=== PATIENT | male | born 1955 | race Caucasian/White ===

== ENCOUNTER → 2021-10-05 14:13 | Outpatient (CLI) | payer MEDICARE, OTHER, SELFPAY ==
[2021-10-05 20:03] LABS: COVID19 -Nasal RAPID POSITIVE (Negative)
== END ==
PROVIDERS: Visit Provider Family Medicine Sleep Medicine
DX: U07.1 COVID-19 (principal); Z20.822 Contact with and (suspected) exposure to COVID-19
CPT/HCPCS: 87635; C9803

== ENCOUNTER → 2021-12-10 14:03 | Outpatient (CLI) | payer MEDICARE, OTHER, SELFPAY ==
[2021-12-10 15:38] LABS: COVID19 -Nasal RAPID Negative (Negative)
== END ==
PROVIDERS: Visit Provider Surgery
DX: Z01.812 Encounter for preprocedural laboratory examination (principal); Z20.822 Contact with and (suspected) exposure to COVID-19
CPT/HCPCS: 87635; C9803

== ENCOUNTER 2021-12-12 12:56 | Day surgery (SDC) | payer MEDICARE, OTHER, SELFPAY ==
--- NOTE | 2021-12-12 | PATH_ITS ---
[facility] Accession Number: [id number] . 01 Material submitted: . ileo-cecal valve - MASS AT IC VALVE . 01 Diagnosis: Ileocecal Valve, Mass, Biopsy: Tubulovillous adenoma. No evidence of malignancy or high-grade dysplasia. MRV 12/14/2021 1041 Local . 01 Electronically signed: . Kita Russo MD, Pathologist NPI- [id number] . 01 Gross description: . MASS AT IC VALVE: Received in formalin are multiple fragment(s) of delgadillo, soft tissue measuring 1.0 x 0.4 x 0.1 cm in aggregate submitted entirely in 1 cassette(s) /CPE 12/13/2021 0733 Local . 01 Pathologist provided ICD-10: D12.0 . 01 CPT . 994855 Specimen Comment: A courtesy copy of this report has been sent to [phone] Performed at: 01 [facility] [address] [place] [address] [facility], [place], [place] [id number] MD Hudson Vasquez MD Phone: [phone]
[2021-12-12 13:17] VITALS: BP 174/96; PULSE 69; RESP 15; TEMP 36.8; O2SAT 98; BMI 22.9
--- NOTE | 2021-12-12 14:05 | PM.HP.1 ---
History of Present Illness History of Present Illness Chief complaint: Colonoscopy Patient History Family & Social History Social History: household members spouse Tobacco & Substance use: Smoking Status Never smoker alcohol intake current alcohol intake frequency holiday/special occasion Substance Use Type does not use Meds Home Medications and Allergies Home Medications Medication Instructions Recorded Confirmed Type amlodipine 5 mg tablet tab 12/12/21 History atorvastatin 80 mg tablet tab 12/12/21 History insulin glargine 100 unit/mL (3 ea SUBCUT 12/12/21 History mL) subcutaneous pen (Lantus Solostar U-100 Insulin) metformin 500 mg tablet,extended tab PO 12/12/21 History release 24 hr Allergies Allergy/AdvReac Type Severity Reaction Status Date / Time No Known Drug Allergies Allergy Verified 12/12/21 13:23 Review of Systems Review of Systems Narrative: Negative Exam Vital Signs (past 8 hours): - 12/12/21 13:17 Temperature 98.2 F Pulse Rate 69 Respiratory Rate 15 Blood Pressure 174/96 H Pulse Oximetry 98 Oxygen Delivery Method Room Air Oxygen Delivery Method Room Air Narrative Exam Narrative: Awake alert and oriented x3, pupils equal round reactive to light, oropharynx clear, heart regular rate and rhythm, lungs clear to auscultation bilaterally, abdomen nontender and nondistended, extremities without edema, no gross neurologic deficits noted Assessment & Plan Assessment & Plan narrative: Colon cancer screening for colonoscopy Time Spent With Patient Critical Care time: I spent a total of [] minutes of critical care time on this patient's care today; this time is exclusive of procedural time.
--- NOTE | 2021-12-12 14:33 | P.OP.COLON_ITS ---
Operative Date/Time/Diagnoses Date of procedure: 12/12/21 Procedure & Clinicians Study performed: Colonoscopy with cold biopsy and injection of tattooing ink. Indications: Colon cancer screening. Last colonoscopy 2008, ? History of colon polyps Procedure Notes Procedure in detail: Prior to the procedure, history and physical was performed, and patient medicati ons and allergies were reviewed. Preprocedure nursing history and assessment was reviewed. Patient identification and proposed procedure were verified by the physician and nurse in the procedure room. The physical status of the patient was reassessed after the procedure. After informed consent was obtained including risks, benefits, and alternatives, the scope was passed under direct vision. Throughout the procedure, the patient's blood pressure, pulse, and oxygen saturations were monitored continuously. The colonoscope was introduced through the anus and advanced to the cecum as identified by the appendiceal orifice and ileocecal valve. The patient tolerated the procedure well. Bowel prep was deemed adequate to detect polyps greater than 5 mm. Perianal and digital rectal examinations were unremarkable. Retroflexion in the rectum revealed grade 1 hemorrhoids. A soft, villiform mass was found overlying the IC valve in the ascending colon. The mass extended proximally into the cecum. The mass occupied 50% of the circumference of the lumen of the colon. Mass was nonobstructing. The mass measured approximately 5 x 4 cm. Biopsies of the mass were taken. The area just distal to the mass was tattooed. The remainder of the colon was unremarkable Complications: other (EBL minimal. No complications) Impression: Internal hemorrhoids Nonobstructing 5 cm diameter ascending colon mass overlying the IC valve and involving the cecum. Biopsied. Area just distal to the mass tattooed Post-procedure Plan for aftercare: Obtain CT of the abdomen and pelvis with IV contrast Refer to general surgery Follow-up pathology results Repeat colonoscopy in 1 year after surgical removal of colon mass Resume home medications Resume previous diet Patient has a contact number available for emergencies. The signs and symptoms of potential delayed complications were discussed with the patient. Return to normal activities tomorrow. Written discharge instructions were provided to the patient. Discharge home with escort
[2021-12-12 14:34] VITALS: BP 118/68; PULSE 70; RESP 15; TEMP 36.6; O2SAT 97
[2021-12-12 14:39] VITALS: BP 145/72; PULSE 69; RESP 15; O2SAT 98
[2021-12-12 14:55] VITALS: BP 158/78; PULSE 69; RESP 18; TEMP 36.2; O2SAT 99
[2021-12-12 15:30] VITALS: BP 151/75; PULSE 66; RESP 15; TEMP 36.3; O2SAT 98
== END 2021-12-12 15:30 | disposition home or self-care (01) ==
PROVIDERS: Internal Medicine; Referring Provider Internal Medicine Gastroenterology; Visit Provider Internal Medicine Gastroenterology
PROC: 0DJD8ZZ Inspection of Lower Intestinal Tract, Via Natural or Artificial Opening Endoscopic (ICD-10-PCS; CPT 45378; principal; 2021-12-12 14:00)
DX: D12.0 Benign neoplasm of cecum (principal); K64.0 First degree hemorrhoids; R10.33 Periumbilical pain; E11.9 Type 2 diabetes mellitus without complications; Z86.010 Personal history of colon polyps; Z79.4 Long term (current) use of insulin; Z79.84 Long term (current) use of oral hypoglycemic drugs; Z79.899 Other long term (current) drug therapy
CPT/HCPCS: 45380; 45381; 82962; J2704

== ENCOUNTER → 2021-12-31 17:14 | Outpatient (CLI) | payer MEDICARE, OTHER, SELFPAY ==
[2021-12-31 17:55] LABS: Add Manual Diff / Slide Review NO; Basophils Absolute Auto 0 /uL (0-100); Basophils Percent Auto 0.4 % (0-2); Eosinophils Absolute Auto 100 /uL (0-450); Eosinophils Percent Auto 1.4 % (2-4); Hematocrit 37.4 % (41-53); Hemoglobin 12.5 g/dL (13.5-17.5); Lymphocytes Absolute Auto 1700 /uL (1100-4500); Lymphocytes Percent Auto 23.2 % (25-40); Mean Corpuscular HGB Conc 33.4 % (30-36); Mean Corpuscular Hemoglobin 28.8 PG (26-34); Mean Corpuscular Volume 86.3 fL (80-100); Monocytes Absolute Auto 600 /uL (0-900); Neutrophils Absolute Auto 4900 /uL (1500-7000); Platelet Count 239 X10^3/uL (150-400); Red Blood Cell Count 4.33 X10^6/uL (4.5-5.9); Red Cell Distribution Width 13.5 % (11.6-14.8); White Blood Cell Count 7.3 X10^3/uL (4.5-11.0)
[2021-12-31 18:09] LABS: Alanine Aminotransferase 35 IU/L (<50); Albumin 4.7 g/dL (3.5-5.0); Albumin Globulin Ratio 1.6 (1.0-2.8); Alkaline Phosphatase 129 U/L (38-126); Aspartate Aminotransferase 29 IU/L (17-59); BUN Creatinine Ratio 26.5 (6-22); Bilirubin Total 0.4 mg/dL (0.2-1.3); Blood Urea Nitrogen 27 mg/dL (9-20); Calcium 10.2 mg/dL (8.4-10.2); Carbon Dioxide 27 mmol/L (22-32); Chloride 103 mmol/L (98-107); Estimated Glomerular Filt Rate > 60 mL/min (>60); Globulin 2.9 g/dL (1.7-4.1); Glucose 177 mg/dL (80-110); HEMOLYSIS < 15 (0-50); Potassium 5.1 mmol/L (3.4-5.1); Sodium 140 mmol/L (137-145); Total Protein 7.6 g/dL (6.3-8.2)
== END ==
PROVIDERS: Referring Provider Surgery; Visit Provider Surgery
DX: K63.89 Other specified diseases of intestine (principal)
CPT/HCPCS: 36415; 80053; 82378; 85025; 99214

== ENCOUNTER → 2022-01-08 10:57 | Outpatient (CLI) | payer MEDICARE, OTHER, SELFPAY ==
--- NOTE | 2022-01-08 10:59 | DI.CT.S_ITS ---
PROCEDURE: CT CHEST ABD PEL W CON INDICATIONS: Cecal mass TECHNIQUE: After the administration of oral and intravenous contrast, axial sections acquired from the supraclavicular neck to the pubic symphysis. Coronal and sagittal reformats were performed. For radiation dose reduction, the following was used: automated exposure control, adjustment of mA and/or kV according to patient size. COMPARISON: None. FINDINGS: Image quality: Excellent. CHEST: Lower Neck: No enlarged lymph nodes. Thyroid: Unremarkable Axillae: No enlarged lymph nodes. Chest Wall: Unremarkable. Lungs and Airways: No consolidation or suspicious nodules. Pleura: No pneumothorax or pleural effusions. Heart: Heart size is normal. No pericardial effusion. Thoracic Vessels: The aorta and pulmonary arteries demonstrate normal size. Mediastinum and Stefany: No enlarged lymph nodes. Esophagus: No wall thickening. No hiatal hernia. ABDOMEN: Liver: Unremarkable. Gallbladder: Contracted. Biliary ducts: Unremarkable. Pancreas: Unremarkable. Spleen: Unremarkable. Adrenal Glands: Unremarkable. Kidneys and Ureters: Unremarkable. Low-density right cortical and low-density left pararenal cysts are noted. Stomach and Bowel: The stomach and small bowel demonstrate normal caliber and wall thickness. A filling defect is visualized within the cecum which likely corresponds with the reported cecal mass. There is no extension beyond the wall of the bowel. The colon demonstrates normal caliber and wall thickness throughout. Peritoneum: No abnormal intraperitoneal fluid. No free air. No peritoneal implants. Ventral Wall: No hernia. Abdominal Nodes: No retroperitoneal or mesenteric adenopathy by size criteria. Vessels: Aorta and inferior vena cava are normal in size. PELVIS: Pelvic Organs: Unremarkable. Bladder: Unremarkable. Pelvic Nodes: No enlarged lymph nodes. Miscellaneous: There are small bilateral fat containing inguinal hernias. Bones: Unremarkable. IMPRESSION: 1. Irregularly marginated cecal mass. No findings to suggest extension beyond the bowel wall or metastasis. No mesenteric adenopathy. Dictated by: Kristy Fan M.D. on 01/08/2022 at 15:58 Approved by: Kristy Fan M.D. on 01/08/2022 at 16:04
== END ==
PROVIDERS: Referring Provider Surgery; Visit Provider Surgery
DX: K63.89 Other specified diseases of intestine (principal)
CPT/HCPCS: 71260; 74177; Q9967

== ENCOUNTER → 2022-01-24 11:09 | Outpatient (CLI) | payer MEDICARE, OTHER, SELFPAY ==
[2022-01-24 11:35] LABS: COVID19 -Nasal RAPID POSITIVE (Negative)
== END ==
PROVIDERS: Visit Provider Surgery
DX: U07.1 COVID-19 (principal); Z01.812 Encounter for preprocedural laboratory examination
CPT/HCPCS: 87635; C9803

== ENCOUNTER → 2022-01-31 11:45 | Outpatient (CLI) | payer MEDICARE, OTHER, SELFPAY ==
[2022-01-31 12:26] LABS: COVID19 -Nasal RAPID POSITIVE (Negative)
== END ==
PROVIDERS: Visit Provider Surgery
DX: U07.1 COVID-19 (principal)
CPT/HCPCS: 87635; C9803

== ENCOUNTER → 2022-02-11 11:38 | Outpatient (CLI) | payer MEDICARE, OTHER, SELFPAY ==
[2022-02-11 12:41] LABS: COVID19 -Nasal RAPID Negative (Negative)
== END ==
PROVIDERS: Visit Provider Surgery
DX: Z20.822 Contact with and (suspected) exposure to COVID-19 (principal); Z01.812 Encounter for preprocedural laboratory examination
CPT/HCPCS: 87635; C9803

== ENCOUNTER 2022-02-12 06:32 | Inpatient (IN) | payer MEDICARE, OTHER, SELFPAY ==
[2022-02-11 07:54] VITALS: BMI 22.2
[2022-02-12] VITALS (14 sets, daily range): BP systolic 130–165; BP diastolic 62–84; PULSE 70–82; RESP 14–19; TEMP 35.7–36.9; O2SAT 93–99; BMI 22.2
--- NOTE | 2022-02-12 | PATH_ITS ---
[facility] Accession Number: [id number] . 01 Material submitted: . small bowel - RIGHT COLON AND TERMINAL ILEUM . 01 Clinical history: . LAP-ASSISTED RIGHT HEMICOLLECTOMY . 01 Diagnosis: Right Colon and Terminal Ileum, Laparoscopic-Assisted Right Hemicolectomy: Invasive, moderately differentiated, colonic adenocarcinoma. Tumor site: Ileocecal valve. Tumor size: 0.9 cm in maximal linear dimension (as measured on glass slide). Tumor extent: Invades muscularis propria. Macroscopic tumor perforation: Not identified. Lymphovascular invasion: Not identified. Perineural invasion: Identified. Invasive adenocarcinoma arises in a 8.2 x 4.3 cm tubulovillous adenoma with focal high-grade dysplasia. Treatment effect: No known presurgical therapy. Margins: All margins are widely negative for invasive carcinoma. Lymph nodes: All lymph nodes are negative for metastatic carcinoma (0/14 lymph nodes examined). Tumor deposits: Not identified. Distant metastasis: Not applicable. Pathologic stage: pT2 pN0. Immunostaining for markers of microsatellite instability (MSI) (controls stain appropriately). MLH1: Loss of nuclear expression. MSH2: No loss of nuclear expression. MSH6: No loss of nuclear expression. PMS2: Loss of nuclear expression. [facility] 02/20/2022 1517 Local . 01 Comment: Immunohistochemical staining for markers of microsatellite instability (MSI) are performed. The analysis shows no loss of MLH1, MSH2, MSH6, or PMS2, demonstrating no immunophenotypic evidence of underlying DNA mismatch repair gene mutation. If clinical concern warrants, additional testing by PCR for MSI could be considered for further evaluation. . 01 Electronically signed: . Miranda Ndiaye MD, Pathologist NPI- [id number] . 01 Gross description: . Received in formalin labeled with the patient's name and right colon and terminal ileum consists of an ileocectomy with a fragment of ileum measuring 2.9 cm in length and 2.2 cm in diameter attached to a segment of colon measuring 23.7 cm in length and 4.7 cm in average diameter. No appendix is identified. The serosa is pink to delgadillo and grossly intact with a hemorrhagic area measuring 6.5 cm in greatest dimension located on the colon approximately 12 cm from the distal margin. A moderate amount of mesenteric fat is attached measuring out to 6.6 cm. The proximal margin is inked blue, the distal margin is inked black, and the radial margin is inked green. Opening the specimen reveals a large sessile polypoid mass adjacent to and partially involving the ileocecal valve and measuring 8.2 x 4.3 cm. The lesion measures approximately 5.0 cm from the proximal margin and greater than 5 cm from the distal margin. Sectioning reveals the lesion does not grossly extend beyond the mucosa. The remaining mucosa is pink-delgadillo and velvety with normal appearing folds and no additional polyps or lesions are identified. The rice average 0.4 cm thick. Palpation of the mesenteric fat reveals five delgadillo lymph node candidates ranging from 0.4 to 0.9 cm in greatest dimension. [employer]ant sections are submitted as follows: . A1: Ileal margin en face. A2-A3: Distal margin en face. A4: Radial margin en face. A5-A10: Polypoid mass. A11: Ileocecal valve. A12: Talent Consultant normal colon. A13: Single lymph node candidate bisected. A14: Single lymph node candidate intact. A15: Three intact lymph node candidates. ([id number]) . The mass measures 6.5 cm from the nearest radial margin. Palpation reveals 11 additional lymph node candidates ranging from 0.3 to 1.7 cm in greatest dimension. . Additional sections are submitted as follows: A16: Three intact lymph node candidates. A17: Four intact lymph node candidates. A18: Three intact lymph node candidates. A19: Single intact lymph node candidate. A20-A38: Remaining mass. ([id number]) /MRV 02/14/2022 1353 Local . 01 Pathologist provided ICD-10: C18.0, K63.5 . 01 CPT . 137939, S85373, X29343 Specimen Comment: A courtesy copy of this report has been sent to [phone] Performed at: 01 [facility] [address] [facility], [place], [place] [id number] MD Hudson Vasquez MD Phone: [phone]
[2022-02-12] MEDS: LACTATED RINGERS 1,000 ML 42 ML IV ×2 (07:11→10:06)
--- NOTE | 2022-02-12 07:46 | SUR.PREOP ---
02/12/2212-8533-Qnwwrnolgp now here to see patient. aware of bs and home BS prior to ensure. 02/12/2216-9032-Hyyzaoa late-just arrived. no h&P/ No preop orders.
--- NOTE | 2022-02-12 07:47 | PM.HP.1 ---
History of Present Illness History of Present Illness Date Patient Seen: 02/12/22 Time Patient Seen: 07:47 Chief complaint: LAP-ASSISTED RIGHT HEMICOLLECTOMY Narrative: Deep is here today for his lap assisted right hemicolectomy for cecal mass. See office note from December for details. He has tested negative for COVID last week. Patient History Medical History COVID-19 virus infection (01/31/22) Diabetes HLD (hyperlipidemia) Hypertension JOZEF (obstructive sleep apnea) Surgical History History of appendectomy (2000) History of uvulopalatopharyngoplasty (1989) Hx of bilateral cataract extraction (2010) Family & Social History Family History Mother Breast cancer Father Liver cancer Social History: household members spouse Safety & Behavioral: Feels Safe in Current Yes Environment Been Physically Hurt or No Threatened By a Person Suicidal Ideation Description None Suicide Plan Description No Plan Tobacco & Substance use: Smoking Status Never smoker alcohol intake former alcohol intake frequency holiday/special occasion Substance Use Type does not use Meds Home Medications and Allergies Home Medications Medication Instructions Recorded Confirmed Type amlodipine 5 mg tablet 5 mg PO QPM 12/12/21 02/12/22 History atorvastatin 80 mg tablet 80 mg PO QPM 12/12/21 02/12/22 History insulin glargine 100 unit/mL (3 50 ea SUBCUT QPM 12/12/21 02/12/22 History mL) subcutaneous pen (Lantus Solostar U-100 Insulin) cinnamon bark 500 mg capsule 500 mg PO DAILY 12/31/21 02/12/22 History (Cinnamon) metformin 500 mg 24 hr 1,000 mg PO BID 12/31/21 02/12/22 History tablet,extended release turmeric root extract 500 mg 500 mg PO DAILY 12/31/21 02/12/22 History capsule metronidazole 500 mg tablet 500 mg PO TID #3 tabs 02/08/22 02/12/22 Rx neomycin 500 mg tablet 1 g PO TID 3 doses #6 tabs 02/08/22 02/12/22 Rx coenzyme Q10 100 mg capsule (Co 100 mg PO DAILY 02/11/22 02/12/22 History Q-10) multivitamin 1 tab PO DAILY 02/11/22 02/12/22 History Allergies Allergy/AdvReac Type Severity Reaction Status Date / Time No Known Drug Allergies Allergy Verified 02/12/22 06:50 Exam Vital Signs (past 8 hours): - 02/12/22 07:00 Temperature 98.5 F Pulse Rate 82 Respiratory Rate 15 Blood Pressure 165/83 H Pulse Oximetry 99 Oxygen Delivery Method Room Air Oxygen Delivery Method Room Air Const General: comfortable Resp Effort & Inspection: normal respiratory effort GI Palpation: soft Assessment & Plan Assessment and plan (1) Cecum mass: Status: Acute Plan Deep is here for his surgery. We reviewed the risks and benefits of surgery and he wishes to proceed. Time Spent With Patient Critical Care time: I spent a total of [] minutes of critical care time on this patient's care today; this time is exclusive of procedural time.
[2022-02-12] MEDS: AMPICILLIN/SULBACTAM 3 GM 3 GM in SODIUM CHLORIDE 0.9% 100 ML IV (08:13)
--- NOTE | 2022-02-12 09:53 | SUR.OPER ---
Supine on padded OR bed with pink positioning pad, head on pillow, left arm padded and tucked at side, right arm secured on arm board <90 degrees, legs uncrossed, safety belt at thigh, tape over blanket over lower legs, foot board in place.
[2022-02-12] MEDS: BUPIVACAINE 0.5% (PF) VIAL 20 ML INJ (11:08)
[2022-02-12] MEDS: LIDOCAINE 1% W/EPI 20 ML INJ (11:09)
[2022-02-12] MEDS: BUPIVACAINE LIPOSOME 266 MG/20 ML VIAL INJ (11:10)
--- NOTE | 2022-02-12 11:36 | P.OP_ITS ---
Operative Date/Time/Diagnoses Date of procedure: 02/12/22 Time of procedure: 11:36 Pre-op diagnosis: Unresectable cecal mass Post-op diagnosis: same Procedure & Clinicians Procedure: Laparoscopic assisted right hemicolectomy Same procedure as scheduled: Yes Surgeon: Kevin Yo Continuous Improvement Black Belt: Radha Preciado Operative Notes Procedure in detail: Operation: Laparoscopic assisted right hemicolectomy Surgeon: Annie PEREZ Continuous Improvement Black Belt: Radha Preciado provided assistance with exposure as well as creation of the anastomosis. Anesthesia: General endotracheal anesthesia The patient is a 66-year-old man who presented with an unresectable cecal polyp on recent colonoscopy. Pathology came back as tubulovillous adenoma. Unasyn was administered. The patient was brought to the operating room and placed on the table in the supine position. General endotracheal anesthesia was induced. A Stevens catheter was placed. The abdomen was prepped and draped in the usual fashion and a time-out was performed. A 1 cm supraumbilical incision was created. Dissection was carried down to the fascia which was scored in the midline with cautery. The peritoneum was pierced with a Peon clamp. A Jerald port was placed and the abdomen was insufflated to 15 mmHg. The camera was inserted and there was no evidence of any injury from the entry. 5 mm ports were placed in the suprapubic position, left lower quadrant, left upper quadrant, right mid abdomen and subxiphoid position under direct vision. We explored the abdomen. There was tattoo ink in the cecum. We started taking down the cecum from the right lower abdomen sidewall. We saw some old ryley from his remote appendectomy. We mobilized the cecum and the distal terminal ileum medially. We then moved on to the right upper quadrant. We took down omental adhesions to the gallbladder fossa until we could clearly see 1st portion the duodenum. We carefully dissected the right transverse mesocolon off of duodenum staying in the natural cleavage plane. We then took down the hepatic flexure and the right colon in the same plane. Once the bowel was sufficiently mobilized we removed the laparoscopic equipment and created a 5 cm transverse incision in the mid right abdomen. A small Donnell retractor was placed into the wound and the right colon was exteriorized. We then created mesenteric windows along the mesenteric border of terminal ileum and another along the proximal transverse colon just proximal to right branch of the middle colic artery. We then lined up the terminal ileum and transverse colon and a 3- 0 silk stitch was placed at the crotch. Blue towels were placed around the bowel and enterotomies were created. A [id number] functional end-to-end anastomosis was created using the 75 mm linear OPHELIA stapler with blue loads. The LigaSure was used to take down the mesentery. The ileocolic pedicle and the right colic pedicle were double tied with a 2-0 Vicryll. Multiple interrupted 3-0 silk sutures were used to imbricate the staple line. The mesenteric defect was closed with a running 2-0 Vicryl. The anastomosis appeared well perfused and patent and allowed to fall back into the right abdomen. We then injected Exparel into the plane above and below the fascia. The posterior sheath and perineum were then closed with a running 0 PDS suture. Next, the anterior sheath was closed with an 0 PDS suture. The fascia of the supraumbilical incision was closed with 2 interrupted 0 Vicryl sutures. The skin incisions were closed with ryley. Dressings were applied over the incisions. EBL: 50 mL Specimen: Terminal ileum and right colon. Post-operative Condition: stable Disposition: PACU
[2022-02-12] MEDS: HYDROMORPHONE 2 MG INJ IV ×2 (11:53→12:12)
[2022-02-12] MEDS: ONDANSETRON 4 MG/2 ML INJ IV (11:54)
--- NOTE | 2022-02-12 12:17 | SUR.PHASEI ---
No inpatient room available as of this time; called and updated with status.
[2022-02-12] MEDS: LACTATED RINGERS 1,000 ML 100 ML IV ×2 (12:53→23:04)
[2022-02-12] MEDS: ATORVASTATIN 20 MG TABLET 80 MG PO (16:32)
[2022-02-12] MEDS: AMLODIPINE 5 MG TABLET PO (16:32)
[2022-02-12] MEDS: IBUPROFEN 600 MG TABLET PO ×2 (16:32→23:05)
[2022-02-13 00:58] VITALS: BP 148/74; PULSE 78; RESP 18; TEMP 36.9; O2SAT 95
[2022-02-13 05:18] VITALS: BP 122/61; PULSE 71; RESP 17; TEMP 36.7; O2SAT 96
[2022-02-13 05:41] LABS: Add Manual Diff / Slide Review NO; Basophils Absolute Auto 0 /uL (0-100); Basophils Percent Auto 0.2 % (0-2); Eosinophils Absolute Auto 0 /uL (0-450); Eosinophils Percent Auto 0.2 % (2-4); Hematocrit 28.5 % (41-53); Hemoglobin 9.6 g/dL (13.5-17.5); Lymphocytes Absolute Auto 1200 /uL (1100-4500); Lymphocytes Percent Auto 11.3 % (25-40); Mean Corpuscular HGB Conc 33.8 % (30-36); Mean Corpuscular Hemoglobin 28.5 PG (26-34); Mean Corpuscular Volume 84.3 fL (80-100); Monocytes Absolute Auto 900 /uL (0-900); Monocytes Percent Auto 8.7 % (3-14); Neutrophils Absolute Auto 8100 /uL (1500-7000); Neutrophils Percent Auto 79.6 % (50-75); Platelet Count 144 X10^3/uL (150-400); Red Blood Cell Count 3.38 X10^6/uL (4.5-5.9); Red Cell Distribution Width 13.6 % (11.6-14.8); White Blood Cell Count 10.2 X10^3/uL (4.5-11.0)
[2022-02-13 05:55] LABS: Blood Urea Nitrogen 8 mg/dL (9-20); Calcium 8.4 mg/dL (8.4-10.2); Carbon Dioxide 27 mmol/L (22-32); Chloride 108 mmol/L (98-107); Estimated Glomerular Filt Rate > 60 mL/min (>60); HEMOLYSIS < 15 (0-50); Sodium 139 mmol/L (137-145)
[2022-02-13 06:05] LABS: Glucose 45 mg/dL (80-110)
[2022-02-13] MEDS: IBUPROFEN 600 MG TABLET PO ×2 (06:49→17:15)
--- NOTE | 2022-02-13 06:58 | PC.NURSE ---
CRITICAL LAB VALUE @0604 Lab reported critical BS: 45 @0606 Pt was A/Ox4, asymptomatic, and given 120 oz apple juice @0610 Critical lab reported to charge nurse, Kayli Mike @06 BS: 71 and pt given additional 120 oz apple juice @0652 BS: 105 and was asymptomatic
[2022-02-13 08:00] VITALS: BP 142/75; PULSE 73; RESP 16; TEMP 36.7; O2SAT 98
--- NOTE | 2022-02-13 09:32 | P.PN_ITS ---
Subjective Subjective Date Patient Seen: 02/13/22 Time Patient Seen: 09:32 Interval history: Minimal pain. Passing some flatus. Exam Vital Signs (past 8 hours): - 02/13/22 05:18 02/13/22 08:00 Temperature 98.1 F 98.0 F Pulse Rate 71 73 Respiratory Rate 17 16 Blood Pressure 122/61 142/75 H Pulse Oximetry 96 98 Oxygen Flow Rate 0 0 Oxygen Delivery Method Room Air Oxygen Flow Rate 0 Narrative Exam Narrative: Abdomen soft, moderately tender Objective Labs Result Diagrams: 02/13/22 05:12 02/13/22 05:12 Labs: Laboratory Results - last 24 hr 02/13/22 02/13/22 05:12 05:12 WBC 10.2 RBC 3.38 L Hgb 9.6 L Hct 28.5 L MCV 84.3 MCH 28.5 MCHC 33.8 RDW 13.6 Plt Count 144 L Neut % (Auto) 79.6 H Lymph % (Auto) 11.3 L [place] % (Auto) 8.7 Eos % (Auto) 0.2 L Baso % (Auto) 0.2 Neut # (Auto) 8100 H Lymph # (Auto) 1200 [place] # (Auto) 900 Eos # (Auto) 0 Baso # (Auto) 0 Sodium 139 Potassium 4.0 Chloride 108 H Carbon Dioxide 27 BUN 8 L Creatinine 0.80 Estimated GFR > 60 BUN/Creatinine Ratio 10.0 Glucose 45 L* Calcium 8.4 PFSH Medical History (Updated 02/13/22 @ 09:33 by Kevin Yo MD) COVID-19 virus infection (01/31/22) Diabetes HLD (hyperlipidemia) Hypertension JOZEF (obstructive sleep apnea) Surgical History History of appendectomy (2000) History of uvulopalatopharyngoplasty (1989) Hx of bilateral cataract extraction (2010) Family History Mother Breast cancer Father Liver cancer Social History household members: spouse Smoking Status: Never smoker alcohol intake: former Assessment & Plan Assessment and plan (1) Postoperative examination: Status: Acute Plan RICKIE shaw out of bed full liquid diet Time Spent With Patient Critical Care time: I spent a total of [] minutes of critical care time on this patient's care today; this time is exclusive of procedural time. Quality VTE Deep Vein Thrombosis/Pulmonary Embolism Present on Admission: No
[2022-02-13] MEDS: LACTATED RINGERS 1,000 ML 100 ML IV ×2 (09:56→19:42)
[2022-02-13 11:50] VITALS: BP 148/78; PULSE 74; RESP 16; TEMP 36.4; O2SAT 95
[2022-02-13] MEDS: INSULIN LISPRO 100 UNIT/ML 3ML VIAL SUBCUT ×3 (12:00→20:40)
--- NOTE | 2022-02-13 12:31 | CM.DANOTE ---
Patient is a 66 yo male who was admitted on 02/12/22 for Lap Assisted Hemicollectomy. Pt has MCR and for [employer] for insurance and his PCP is not listed. EMR was reviewed. Per Surgeon, pt tolerated procedure well but not yet stable for discharge. Per solution coordinator, pt tolerating clears and slowly advancing diet. SW met bedside with pt and spouse/DPOA Amie Marcial and explained role and they confirm they live in [place] and pt independent with ADL's at baseline and active and does not use DME to ambulate and still drives. Spouse confirms she is available for assist and transport at d/c. Pt denies any hx of HH or SNF and states he has already ambulated to the bathroom independently with little pain. Pt does not anticipate any d/c needs but they would be agreeable to HH RN if recommended at d/c. SW provided the SNF/HH Choice list to review and marked to two HH agencies that cover [facility] to review. Pt and spouse very appreciative. Plan: SW to follow for advancing diet and to confirm safe d/c plan home with spouse assist and r/o HH RN needs. DIONTE Fernandez Discharge Planning/Care Management Advanced directive, confirm from FAMILY Start: 02/12/22 13:16 Freq: Q24H Status: Active Protocol: Document 02/12/22 13:16 CM (Rec: 02/12/22 13:18 CM [id number]) Advance Directive, confirm on record Time 13:18 Person contacted Pt's spouse Copy received No CM Discharge Assessment Start: 02/13/22 12:25 Freq: Status: Active Protocol: Document 02/13/22 12:25 BF (Rec: 02/13/22 12:30 BF [id number]) Discharge Planning Assessment Assigned Solution Consultant DIONTE Cota DPJODEE/Assigned Designee Name Spouse Amie Contact Information [phone] Advance Directives? Yes Advance Directives on File No History Provided By Patient,Significant Other, Medical Record Has Patient been admitted in last 30 No days? Prior Living Arrangements House Household Members spouse Type of transporation used prior to Drives own vehicle admit Independent with ADL's Yes Is patient alert and oriented? Yes Caregiver for Another No Patient/Family Preference Home with Home Health Barriers to Discharge No Discharge Plan Home with Home Health Transportation Arrangement spouse is bedside and plans to transport Additional Comment r/o HH RN Medicare Choice List Provided Yes Whiteboard Updated in Patient Room with Yes name and ext. # of Solution Consultant Review Status In Process Please Provide Date Initial DC 02/13/22 Assessment Was Performed Next Review Type Continued Stay Review Pre-Anesthesia Assessment Start: 02/04/22 14:26 Freq: Status: Active Protocol: Document 02/11/22 07:54 CAB (Rec: 02/04/22 15:16 CAB [id number]) Pre-Anesthesia Assessment PAC Comment Unable to reach pt for scheduled phone PAC assessment , chart review only. COVID screen positive 01/31/22-Dr. Yo has discussed case with camila Duke to proceed per An/Dr. Yo. 02/11/22 - Pt came by office, reviewed PAC assessment. Patient Information Reviewed Via On-site Review,Phone Assessment Assessment Completed With Patient Comment COVID screen @ 02/11/22 Primary Care Provider Seen Specialist in Last 12 Months Yes Specialist Seen General surgeon Primary Language Malawian Aerospace Engineer Required No Height 177.8 cm Weight 70.307 kg Body Mass Index (BMI) 22.2 Hearing Ability Normal Visual Impairment No Limitations Visual Assist None Dentition Type Teeth, Missing Barriers to Learning None Hx Anesthesia Reactions No Hx Family Anesthesia Reaction No Hx Malignant Hyperthermia No Hx Blood Transfusions No Hx Blood Transfusion Reaction No Anesthesia Review Requested No Family Physician No alcohol intake never Smoking Status Never smoker Substance Use Type does not use Pain Present Pain Reported Patient is completely paralyzed or No completely immobile Mental Status Oriented to own ability Is patient on oxygen? No Does patient have KAT/SOB No Hx Sleep Apnea Yes: Resolved with UPPP Currently Taking a Beta Jaime No Hx Chest Pain No Hx SOB No Hx Syncope or Dizziness No Anti-Coagulant Therapy No Cardiac Testing No Hx Pacemaker/ICD No Pacemaker Rep Required? No Diet Type At Home Regular dysphagia No Gastrointestinal Symptoms Constipation Bladder Pattern Frequency,Nocturia Urinary Catheter Present No Hx Urinary Self Catheterization No Diabetes Yes Presence of External or Internal Medical Yes: Bilat eye IOLs Devices Have you had any close contact with Yes: Pt Covid + 01/31/22 someone diagnosed with COVID-19? Are you experiencing any of these No symptoms symptoms? Received a COVID vaccine? Yes Received all doses? Yes Marital Status Lives With spouse Patient Discharge Plan Description Return Home Feels Safe in Current Environment Yes Been Physically Hurt or Threatened By a No Person in Current Environment Do you have thoughts of harming yourself None or others? Are you currently considering suicide? No Do you have a plan to hurt yourself or No Plan others? Do You Have Any Spiritual Beliefs That No May Affect Your HC Choices? Do You Have Any Cultural Practices That No May Affect Your HC Choices? Comment Restoration Who Can We Speak to About Patient's Care Family, friends Identifying Code for Release of Patient Declines to issue Information Health Care Proxy/Next of Kin Amie () Health Care Proxy Emergency Contact Name Amie () Emergency Contact Advance Directives? Yes Advance Directives on File No Requested Patient Bring Advanced Yes Directives DOS Power of Water Pollution Specialist Yes Power of Water Pollution Specialist Name Amie (elias) Power of Water Pollution Specialist
[2022-02-13 17:10] VITALS: BP 138/64; PULSE 73; RESP 16; TEMP 36.5; O2SAT 95
[2022-02-13] MEDS: AMLODIPINE 5 MG TABLET PO (17:11)
[2022-02-13] MEDS: ATORVASTATIN 20 MG TABLET 80 MG PO (17:11)
[2022-02-13 21:00] VITALS: BP 144/72; PULSE 74; RESP 19; TEMP 36.4; O2SAT 96
[2022-02-14] MEDS: IBUPROFEN 600 MG TABLET PO ×2 (00:24→08:48)
[2022-02-14 00:54] VITALS: BP 142/71; PULSE 69; RESP 18; TEMP 36.3; O2SAT 96
--- NOTE | 2022-02-14 03:23 | PC.NURSE ---
Pt is AxOx4, independent and cooperative. VSS, c/o pain abd and recieved PRN Ibuprofen around midnight with good effect. Dressings on abd looks intact and has some small amt of drainage. BG-254 at bedtime. Pt walked around in the unit around 2100. No other changes. Continue monitor.
[2022-02-14 04:47] VITALS: BP 144/76; PULSE 66; RESP 18; TEMP 36.4; O2SAT 96
[2022-02-14] MEDS: LACTATED RINGERS 1,000 ML 100 ML IV (06:28)
[2022-02-14 07:55] VITALS: BP 151/79; PULSE 64; RESP 16; TEMP 36.8; O2SAT 96
[2022-02-14] MEDS: INSULIN LISPRO 100 UNIT/ML 3ML VIAL SUBCUT ×4 (08:49→21:29)
[2022-02-14 11:35] VITALS: BP 142/74; PULSE 66; RESP 16; O2SAT 95
--- NOTE | 2022-02-14 12:19 | DIET.CONS2 ---
Dietary Inpatient Consultation Note Admission Date: 02/12/2022 06:32 Pt with frequent hyperglycemia this hospitalization on full liquid diet (BG 200-280). Adding 60g/meal carb limit to support adequate glycemic control. Diet: 02/13/22 Lunch Full Liquid Diet Diet Modifications: Nutrition Percent Meal Consumed 100% 02/13/22 17:52 Percent Meal Consumed 100% 02/13/22 10:10 Percent Meal Consumed 50% 02/12/22 18:00 Electronically Signed by: Debbie Ibarra 02/14/22 12:19 Clinical Dietitian [address] [address]
--- NOTE | 2022-02-14 15:50 | PM.PN.1 ---
Subjective Subjective Date Patient Seen: 02/14/22 Time Patient Seen: 15:51 Interval history: Deep reports passing some gas and a small bowel movement. He has tolerated his full liquid diet without nausea but he is feeling slightly more bloated. His pain has been well controlled with ibuprofen. Exam Vital Signs (past 8 hours): - 02/14/22 07:55 02/14/22 11:35 Temperature 98.2 F Pulse Rate 64 66 Respiratory Rate 16 16 Blood Pressure 151/79 H 142/74 H Pulse Oximetry 96 95 Oxygen Flow Rate 0 0 Oxygen Delivery Method Room Air Oxygen Flow Rate 0 Const General: comfortable Resp Effort & Inspection: normal respiratory effort GI Other: Abdomen soft, nontender Slightly more distended than yesterday Incisions are CDI Objective Labs Result Diagrams: 02/13/22 05:12 02/13/22 05:12 [facility] Medical History (Updated 02/13/22 @ 09:33 by Kevin Yo MD) COVID-19 virus infection (01/31/22) Diabetes HLD (hyperlipidemia) Hypertension JOZEF (obstructive sleep apnea) Surgical History History of appendectomy (2000) History of uvulopalatopharyngoplasty (1989) Hx of bilateral cataract extraction (2010) Family History Mother Breast cancer Father Liver cancer Social History household members: spouse Smoking Status: Never smoker alcohol intake: former Assessment & Plan Assessment and plan (1) Postoperative examination: Status: Acute Plan Continue full liquid diet for now Will add tylenol for pain Start lovenox (was held yesterday because his propensity to bleed during surgery) Time Spent With Patient Critical Care time: I spent a total of [] minutes of critical care time on this patient's care today; this time is exclusive of procedural time. Quality VTE Deep Vein Thrombosis/Pulmonary Embolism Present on Admission: No
[2022-02-14] MEDS: AMLODIPINE 5 MG TABLET PO (16:32)
[2022-02-14] MEDS: ATORVASTATIN 20 MG TABLET 80 MG PO (16:32)
[2022-02-14] MEDS: ACETAMINOPHEN 325 MG TABLET 650 MG PO ×2 (16:32→22:37)
[2022-02-14 17:00] VITALS: BP 153/77; PULSE 68; RESP 16; TEMP 36.8; O2SAT 97
[2022-02-14 20:15] VITALS: BP 154/75; PULSE 64; RESP 14; TEMP 36.6; O2SAT 96
[2022-02-14] MEDS: SODIUM CHLORIDE 0.9% FLUSH 10 ML IV (21:32)
--- NOTE | 2022-02-14 23:36 | PC.NURSE ---
Spouse & patient reported coccyx has some rashes. Spouse stated he used to have some rashes in his buttocks, his doctor prescribed some medicine. But I forgot the name of the medicine. Re-assessed his rashes slight erythema noted with some superficial scratches sl. bleeding noted. Given some barrier cream for sensitive skin. Patient & spouse are ambulating in the hallway. Will cont. POC & monitor.
[2022-02-15] VITALS: BP 161/83; PULSE 69; RESP 14; TEMP 36.6; O2SAT 95
[2022-02-15] MEDS: IBUPROFEN 600 MG TABLET PO ×3 (00:05→16:50)
[2022-02-15 02:18] VITALS: BP 147/70; PULSE 65; RESP 12; TEMP 36.6; O2SAT 96
[2022-02-15 07:55] VITALS: BP 147/86; PULSE 63; RESP 16; TEMP 36.2; O2SAT 96
[2022-02-15] MEDS: INSULIN LISPRO 100 UNIT/ML 3ML VIAL SUBCUT ×4 (08:04→20:26)
[2022-02-15] MEDS: ENOXAPARIN 40 MG/0.4 ML SYRINGE SUBCUT (08:04)
[2022-02-15] MEDS: SODIUM CHLORIDE 0.9% FLUSH 10 ML IV ×2 (08:05→20:13)
[2022-02-15 11:45] VITALS: BP 151/78; PULSE 68; RESP 16; TEMP 36.3; O2SAT 97
[2022-02-15 12:17] LABS: Add Manual Diff / Slide Review NO; Basophils Absolute Auto 0 /uL (0-100); Basophils Percent Auto 0.5 % (0-2); Eosinophils Absolute Auto 100 /uL (0-450); Eosinophils Percent Auto 1.9 % (2-4); Hemoglobin 10.5 g/dL (13.5-17.5); Lymphocytes Absolute Auto 1000 /uL (1100-4500); Lymphocytes Percent Auto 15.8 % (25-40); Mean Corpuscular HGB Conc 33.7 % (30-36); Mean Corpuscular Hemoglobin 28.5 PG (26-34); Mean Corpuscular Volume 84.7 fL (80-100); Monocytes Absolute Auto 500 /uL (0-900); Monocytes Percent Auto 7.2 % (3-14); Neutrophils Absolute Auto 4800 /uL (1500-7000); Neutrophils Percent Auto 74.6 % (50-75); Platelet Count 164 X10^3/uL (150-400); Red Blood Cell Count 3.66 X10^6/uL (4.5-5.9); Red Cell Distribution Width 13.2 % (11.6-14.8); White Blood Cell Count 6.4 X10^3/uL (4.5-11.0)
--- NOTE | 2022-02-15 14:24 | PM.PNPO.1 ---
Subjective Subjective Date Patient Seen: 02/15/22 Time Patient Seen: 14:24 Interval history: positive flatus and BM. Mild abdominal pain well controlled with nonnarcotic medication tolerating full liquid diet Exam Vital Signs (past 8 hours): - 02/15/22 07:55 02/15/22 11:45 Temperature 97.2 F L 97.3 F L Pulse Rate 63 68 Respiratory Rate 16 16 Blood Pressure 147/86 H 151/78 H Pulse Oximetry 96 97 Oxygen Flow Rate 0 0 Oxygen Delivery Method Room Air Oxygen Flow Rate 0 Narrative Exam Narrative: general adult male alert oriented no acute distress Abdomen soft appropriately tender to palpation. Incisions clean dry intact with ryley. Objective Labs Result Diagrams: 02/15/22 11:50 02/13/22 05:12 Labs: Laboratory Results - last 24 hr 02/15/22 11:50 WBC 6.4 RBC 3.66 L Hgb 10.5 L Hct 31.0 L MCV 84.7 MCH 28.5 MCHC 33.7 RDW 13.2 Plt Count 164 Neut % (Auto) 74.6 Lymph % (Auto) 15.8 L [place] % (Auto) 7.2 Eos % (Auto) 1.9 L Baso % (Auto) 0.5 Neut # (Auto) 4800 Lymph # (Auto) 1000 L [place] # (Auto) 500 Eos # (Auto) 100 Baso # (Auto) 0 PFSH Medical History (Updated 02/13/22 @ 09:33 by Kevin Yo MD) COVID-19 virus infection (01/31/22) Diabetes HLD (hyperlipidemia) Hypertension JOZEF (obstructive sleep apnea) Surgical History History of appendectomy (2000) History of uvulopalatopharyngoplasty (1989) Hx of bilateral cataract extraction (2010) Family History Mother Breast cancer Father Liver cancer Social History household members: spouse Smoking Status: Never smoker alcohol intake: former Assessment & Plan Post-op Postoperative Procedures: Procedures Operation Date: 02/12/22 07:45 Actual Procedure Side Surgeon p Laparoscopically assisted Hemicolectomy Right Kevin Yo MD Postoperative status narrative: 66-year-old man postoperative day 3 status post 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 He is progressing appropriately. - advanced to regular diet - out of bed ambulate - anticipate discharge home tomorrow - prophylactic Lovenox and SCDs Quality VTE Deep Vein Thrombosis/Pulmonary Embolism Present on Admission: No
[2022-02-15] MEDS: AMLODIPINE 5 MG TABLET PO (16:50)
[2022-02-15] MEDS: ATORVASTATIN 20 MG TABLET 80 MG PO (16:53)
[2022-02-15] MEDS: INSULIN GLARGINE 100 UNIT/ML 3ML PEN 50 UNIT SUBCUT (16:54)
--- NOTE | 2022-02-15 17:14 | CM.DPNOTE ---
Discharge Planning Note: Patient improving, advanced to regular diet, bloating decreased, incisions cdi. P: When medically cleared return home to care of spouse. Nancy Torres RN/DCP
[2022-02-15 20:00] VITALS: BP 144/76; PULSE 74; RESP 14; TEMP 36.6; O2SAT 96
[2022-02-16] MEDS: IBUPROFEN 600 MG TABLET PO ×2 (01:13→14:22)
[2022-02-16 07:30] VITALS: BP 138/70; PULSE 64; RESP 19; TEMP 36.4; O2SAT 97
[2022-02-16] MEDS: ENOXAPARIN 40 MG/0.4 ML SYRINGE SUBCUT (09:09)
[2022-02-16] MEDS: SODIUM CHLORIDE 0.9% FLUSH 10 ML IV (09:10)
[2022-02-16] MEDS: INSULIN LISPRO 100 UNIT/ML 3ML VIAL SUBCUT ×2 (09:12→12:15)
--- NOTE | 2022-02-16 10:57 | PC.NURSE ---
Addendum entered by Stephon Hinson R.N. 02/16/22 15:44: Given d/c instructions with present. Asking appropriate questions. IV d/c'd intact. Pt showered and dressed. Escorted to car via w/c. Original Note: Pt A&O offers no overt c/o. Anticipating going home today. attentive at beside. Surgical site intact.
[2022-02-16 11:45] VITALS: BP 144/76; PULSE 70; RESP 19; TEMP 36.4; O2SAT 96
--- NOTE | 2022-02-16 12:59 | P.PN_ITS ---
Subjective Subjective Date Patient Seen: 02/16/22 Time Patient Seen: 12:59 Interval history: Deep is doing well. He is tolerating his diet and passing gas and some small bowel movements. His abdomen is still slightly more bloated than baseline. Pain is well controlled with nonnarcotic oral medications. Exam Vital Signs (past 8 hours): - 02/16/22 07:30 Temperature 97.5 F L Pulse Rate 64 Respiratory Rate 19 Blood Pressure 138/70 Pulse Oximetry 97 Oxygen Flow Rate 0 Oxygen Delivery Method Room Air Oxygen Flow Rate 0 Narrative Exam Narrative: Abdomen is stable compared to . Still slightly more distended than baseline. Incisions are clean dry and intact Objective Labs Result Diagrams: 02/15/22 11:50 02/13/22 05:12 [facility] Medical History (Updated 02/13/22 @ 09:33 by Darling Yo MD) COVID-19 virus infection (01/31/22) Diabetes HLD (hyperlipidemia) Hypertension JOZEF (obstructive sleep apnea) Surgical History History of appendectomy (2000) History of uvulopalatopharyngoplasty (1989) Hx of bilateral cataract extraction (2010) Family History Mother Breast cancer Father Liver cancer Social History household members: spouse Smoking Status: Never smoker alcohol intake: former Assessment & Plan Assessment and plan (1) Postoperative examination: Status: Acute Plan Plan for discharge home today He can continue to take nonnarcotic oral pain medications I will have my office arrange a follow-up visit around the 2 week darling. Time Spent With Patient Critical Care time: I spent a total of [] minutes of critical care time on this patient's care today; this time is exclusive of procedural time. Quality VTE Deep Vein Thrombosis/Pulmonary Embolism Present on Admission: No
--- NOTE | 2022-02-16 13:06 | PM.DS.1 ---
History of Present Illness History of Present Illness Chief complaint: LAP-ASSISTED RIGHT HEMICOLLECTOMY Narrative: Deep is here today for his lap assisted right hemicolectomy for cecal mass. See office note from December for details. He has tested negative for COVID last week. Discharge Providers Provider Date of admission: 02/12/22 06:32 Discharge Date: 02/16/22 Primary care physician: Doctor Denilson MD Discharge provider: Kevin Yo MD Summary Hospital Course Discharge Diagnosis: Cecal mass Hospital Course: Deep underwent his laparoscopic-assisted right hemicolectomy on February 12, 2022. He had an unremarkable postoperative course. He was able to avoid narcotic pain medications during his recovery. He was discharged home on postoperative day 4 Exam Vital Signs (past 8 hours): - 02/16/22 07:30 Temperature 97.5 F L Pulse Rate 64 Respiratory Rate 19 Blood Pressure 138/70 Pulse Oximetry 97 Oxygen Flow Rate 0 Oxygen Delivery Method Room Air Oxygen Flow Rate 0 Objective Labs Result Diagrams: 02/15/22 11:50 02/13/22 05:12 [facility] Medical History (Updated 02/13/22 @ 09:33 by Kevin Yo MD) COVID-19 virus infection (01/31/22) Diabetes HLD (hyperlipidemia) Hypertension JOZEF (obstructive sleep apnea) Surgical History History of appendectomy (2000) History of uvulopalatopharyngoplasty (1989) Hx of bilateral cataract extraction (2010) Family History Mother Breast cancer Father Liver cancer Social History household members: spouse Smoking Status: Never smoker alcohol intake: former Discharge Plan Discharge Plan Patient Disposition: Home Provider Discharge Comment: Okay to shower. Do not soak in a tub or pool for 2 weeks. Use [id number] pain medications like Tylenol or ibuprofen as needed. Discharge orders & Medications Prescriptions: Continued metronidazole 500 mg tablet 500 mg PO TID Qty: 3 0RF Rx Instructions: administer at 2 PM, 4 PM, and 10 PM the day prior to surgery neomycin 500 mg tablet 1 g PO TID Qty: 6 0RF Rx Instructions: administer at 2 PM, 4 PM, and 10 PM the day prior to surgery metformin 500 mg tablet,ER vonda.retention 24 hr 1,000 mg PO BID Rx Instructions: 2 tabs BID turmeric root extract 500 mg capsule 500 mg PO DAILY cinnamon bark [Cinnamon] 500 mg capsule 500 mg PO DAILY amlodipine 5 mg tablet 5 mg PO QPM insulin glargine [Lantus Solostar U-100 Insulin] 100 unit/mL (3 mL) insulin pen 50 ea SUBCUT QPM Label Comments: 40 units atorvastatin 80 mg tablet 80 mg PO QPM multivitamin Tablet 1 tab PO DAILY coenzyme Q10 [Co Q-10] 100 mg Capsule 100 mg PO DAILY Follow up/Referrals: Miscellaneous,Doctor, [Primary Care Provider] - Discharge Data Primary Care Provider: Denilson,Doctor Quality VTE Deep Vein Thrombosis/Pulmonary Embolism Present on Admission: No
== END 2022-02-16 14:31 | disposition home or self-care (01) | DRG 331 ==
PROVIDERS: Surgery; Admitting Provider Surgery; Referring Provider Surgery; Visit Provider Surgery
PROC: 0DTE0ZZ Resection of Large Intestine, Open Approach (ICD-10-PCS; principal; 2022-02-12 07:45)
DX: K63.5 Polyp of colon (principal); E11.9 Type 2 diabetes mellitus without complications; I10 Essential (primary) hypertension; E78.5 Hyperlipidemia, unspecified; Z79.4 Long term (current) use of insulin; Z20.822 Contact with and (suspected) exposure to COVID-19; Z79.84 Long term (current) use of oral hypoglycemic drugs
CPT/HCPCS: 36415; 44204; 80048; 82962; 85025; 87635; C9803; C9290; J0295; J1100; J1170; J1650; J1815; J2250; J2405; J2704; J3010

== ENCOUNTER 2023-01-23 09:29 | Day surgery (SDC) | payer MEDICARE, OTHER, SELFPAY ==
[2022-02-12 12:46] VITALS: BMI 22.2
[2023-01-23 10:01] VITALS: BP 172/95; PULSE 80; RESP 16; TEMP 36.2; O2SAT 99; BMI 23.6
[2023-01-23] MEDS: LACTATED RINGERS 1,000 ML 125 ML IV (10:20)
--- NOTE | 2023-01-23 10:36 | P.HP_ITS ---
History of Present Illness History of Present Illness Date Patient Seen: 01/23/23 Time Patient Seen: 10:36 Chief complaint: Colonoscopy Narrative: Deep is a 67-year-old man who had a stage I colon cancer resected last year. He is here for his 1 year colonoscopy. He has been well. [facility] Medical History (Updated 01/23/23 @ 10:36 by Kevin Yo MD) COVID-19 virus infection (01/31/22) Diabetes HLD (hyperlipidemia) Hypertension JOZEF (obstructive sleep apnea) Surgical History History of appendectomy (2000) History of uvulopalatopharyngoplasty (1989) Hx of bilateral cataract extraction (2010) Family History Mother Breast cancer Father Liver cancer Social History household members: spouse Smoking Status: Never smoker alcohol intake: current Meds Home Medications and Allergies Home Medications Medication Instructions Recorded Confirmed Type amlodipine 5 mg tablet 5 mg PO QPM 12/12/21 01/23/23 History atorvastatin 80 mg tablet 80 mg PO QPM 12/12/21 01/23/23 History insulin glargine 100 unit/mL (3 50 ea SUBCUT QPM 12/12/21 01/23/23 History mL) subcutaneous pen (Lantus Solostar U-100 Insulin) cinnamon bark 500 mg capsule 500 mg PO DAILY 12/31/21 01/23/23 History (Cinnamon) metformin 500 mg 24 hr 1,000 mg PO BID 12/31/21 01/23/23 History tablet,extended release turmeric root extract 500 mg 500 mg PO DAILY 12/31/21 01/23/23 History capsule coenzyme Q10 100 mg capsule (Co 100 mg PO DAILY 02/11/22 01/23/23 History Q-10) multivitamin 1 tab PO DAILY 02/11/22 01/23/23 History sodium,potassium,mag sulfates 17.5 See Rx Instructions PO .COMPLEX 12/10/22 01/23/23 Rx gram-3.13 gram-1.6 gram oral soln #354 mL (Suprep Bowel Prep Kit) Allergies Allergy/AdvReac Type Severity Reaction Status Date / Time No Known Drug Allergies Allergy Verified 03/04/22 09:28 Exam Vital Signs (past 8 hours): - 01/23/23 10:01 Temperature 97.2 F L Pulse Rate 80 Respiratory Rate 16 Blood Pressure 172/95 H Pulse Oximetry 99 Oxygen Delivery Method Room Air Oxygen Delivery Method Room Air Const General: healthy appearing Assessment & Plan Assessment and plan (1) History of colon cancer: Status: Acute Plan We reviewed the risks and benefits of colonoscopy for history of colon cancer and he would like to proceed.
--- NOTE | 2023-01-23 11:37 | PM.OP.COLON ---
Operative Date/Time/Diagnoses Date of procedure: 01/23/23 Time of procedure: 11:37 Pre-op diagnosis: History of colon cancer Post-op diagnosis: same Procedure & Clinicians Study performed: Colonoscopy Same procedure as scheduled: Yes Surgeon: Kevin Yo Procedure Notes Procedure in detail: Surgeon: Kevin Yo MD Anesthesia: Fredy Conteh CRNA Procedure: The patient was brought to the endoscopy suite, placed in left lateral decubitus position. The patient was connected to monitoring devices. A time-out was performed. Sedation was administered. Once the patient was adequately sedated, a digital rectal exam was performed and was normal. The scope was then inserted and advanced to the anastomosis which was normal in appearance. Photographs were taken. The scope was then slowly withdrawn over greater than 6 minutes. The mucosa was thoroughly inspected. No abnormalities were found. The scope was retroflexed in the rectum. No abnormalities were seen. The scope was straightened and removed. The patient was awakened and brought to recovery. Scope withdrawal time: 12 minutes Sedation time: 19 minutes EBL: 0 Findings: Normal colon Post-procedure Recommendations: Colonoscopy in 5 years Disposition: PACU
[2023-01-23 11:38] VITALS: BP 110/53; PULSE 73; RESP 18; TEMP 36.2; O2SAT 94
[2023-01-23 11:41] VITALS: BP 121/59; PULSE 78; RESP 16; O2SAT 95
[2023-01-23 11:48] VITALS: BP 121/66; PULSE 74; RESP 15; O2SAT 97
[2023-01-23 11:54] VITALS: BP 102/82; PULSE 74; RESP 16; O2SAT 97
[2023-01-23 12:01] LABS: Add Manual Diff / Slide Review NO; Basophils Absolute Auto 0 /uL (0-100); Basophils Percent Auto 0.5 % (0-2); Eosinophils Absolute Auto 100 /uL (0-450); Eosinophils Percent Auto 1.3 % (2-4); Hematocrit 35.5 % (41-53); Lymphocytes Absolute Auto 1500 /uL (1100-4500); Lymphocytes Percent Auto 22.6 % (25-40); Mean Corpuscular HGB Conc 33.6 % (30-36); Mean Corpuscular Hemoglobin 28.9 PG (26-34); Mean Corpuscular Volume 85.8 fL (80-100); Monocytes Absolute Auto 500 /uL (0-900); Monocytes Percent Auto 7.1 % (3-14); Neutrophils Absolute Auto 4600 /uL (1500-7000); Neutrophils Percent Auto 68.5 % (50-75); Platelet Count 211 X10^3/uL (150-400); Red Blood Cell Count 4.14 X10^6/uL (4.5-5.9); Red Cell Distribution Width 13.3 % (11.6-14.8); White Blood Cell Count 6.6 X10^3/uL (4.5-11.0)
[2023-01-23 12:11] LABS: HEMOLYSIS 37 (0-50)
[2023-01-23 12:20] LABS: Alanine Aminotransferase 47 IU/L (<50); Albumin 4.5 g/dL (3.5-5.0); Albumin Globulin Ratio 1.3 (1.0-2.8); Alkaline Phosphatase 80 U/L (38-126); Aspartate Aminotransferase 48 IU/L (17-59); Bilirubin Total 0.7 mg/dL (0.2-1.3); Blood Urea Nitrogen 19 mg/dL (9-20); Calcium 9.2 mg/dL (8.4-10.2); Carbon Dioxide 25 mmol/L (22-32); Chloride 100 mmol/L (98-107); Estimated Glomerular Filt Rate > 60 mL/min (>60); Globulin 3.4 g/dL (1.7-4.1); Glucose 136 mg/dL (80-110); Potassium 4.6 mmol/L (3.4-5.1); Sodium 135 mmol/L (137-145); Total Protein 7.9 g/dL (6.3-8.2)
[2023-01-23 15:14] LABS: Carcinoembryonic Antigen 8.6 ng/mL (0.1-3.0)
== END 2023-01-23 12:10 | disposition home or self-care (01) ==
PROVIDERS: Referring Provider Surgery; Visit Provider Surgery
PROC: 0DJD8ZZ Inspection of Lower Intestinal Tract, Via Natural or Artificial Opening Endoscopic (ICD-10-PCS; CPT 45378; principal; 2023-01-23 10:45)
DX: Z12.11 Encounter for screening for malignant neoplasm of colon (principal); Z85.038 Personal history of other malignant neoplasm of large intestine; G47.33 Obstructive sleep apnea (adult) (pediatric); E11.9 Type 2 diabetes mellitus without complications; I10 Essential (primary) hypertension; Z79.4 Long term (current) use of insulin; Z79.84 Long term (current) use of oral hypoglycemic drugs
CPT/HCPCS: G0105; 80053; 82378; 85025; J2704